=== PATIENT | female | born 1995 | race American Indian/Alaskan Native ===

== ENCOUNTER 2017-08-05 14:57 | Outpatient (CLI) | payer OTHER ==
[2017-08-05] MEDS ORDERED: FLUCONAZOLE150 MG PO (17:10)
== END 2017-08-05 17:40 | disposition home or self-care (01) ==
LOC: OBS/DEL 14:57
DX: O23.593 Infection of other part of genital tract in pregnancy, third trimester (principal); N76.0 Acute vaginitis

== ENCOUNTER 2017-08-15 14:01 | Outpatient (CLI) | payer OTHER ==
[~2017-08-15 14:01] MED LIST: FLUCONAZOLE150 MG PO
== END 2017-08-16 13:32 | disposition home or self-care (01) ==
LOC: OBS/DEL 14:01
DX: O26.893 Other specified pregnancy related conditions, third trimester (principal); R73.9 Hyperglycemia, unspecified; Z34.03 Encounter for supervision of normal first pregnancy, third trimester

== ENCOUNTER 2017-09-13 05:31 | Inpatient (IN) | payer OTHER ==
[~2017-09-13] VITALS: Ht 152.4 cm; Wt 2.7 kg
[2017-09-13] MEDS ORDERED: PRENATAL 19 TA1 EACH PO (05:37)
[2017-09-17] MEDS ORDERED: PERCOCET 5-3251 EACH PO (12:15)
[2017-09-17] MEDS ORDERED: SURFAK240 M1 PO (12:15)
== END 2017-09-17 15:24 | DRG 766 ==
LOC: OBS/DEL 05:31 → LDR 14:03 → O/R 09-14 08:00 → OB/GYN 09-14 15:57
PROVIDERS: Specialist
PROC: 3E0P7VZ Introduction of Hormone into Female Reproductive, Via Natural or Artificial Opening (ICD-10-PCS; 2017-09-14)
PROC: 3E033VJ Introduction of Other Hormone into Peripheral Vein, Percutaneous Approach (ICD-10-PCS; 2017-09-14)
PROC: 4A033R1 Measurement of Arterial Saturation, Peripheral, Percutaneous Approach (ICD-10-PCS; 2017-09-14)
PROC: 4A1HXCZ Monitoring of Products of Conception, Cardiac Rate, External Approach (ICD-10-PCS; 2017-09-14)
PROC: 10D00Z1 Extraction of Products of Conception, Low, Open Approach (ICD-10-PCS; principal; 2017-09-14 07:00)
DX: O62.0 Primary inadequate contractions (principal); O24.424 Gestational diabetes mellitus in childbirth, insulin controlled; Z3A.37 37 weeks gestation of pregnancy; Z37.0 Single live birth